=== PATIENT | female | born 1965 | race Caucasian/White ===

== ENCOUNTER 2020-09-02 14:44 | Outpatient (CLI) | payer OTHER, SELFPAY ==
--- NOTE | 2020-09-02 14:52 | XRR_ITS ---
PROCEDURE INFORMATION: Exam: XR Right Shoulder Exam date and time: 09/02/2020 3:03 PM Age: 55 years old Clinical indication: Pain and injury or trauma; Fall; Blunt trauma (contusions or hematomas); Shoulder; Right; Injury date: 6 weeks ago; Additional info: R rotator cuff syndrome/chronic R shoulder pain TECHNIQUE: Imaging protocol: XR Right shoulder. Views: 2 or more views. COMPARISON: No relevant prior studies available. FINDINGS: Bones/joints: No acute bony injury or malalignment. Mild degenerative change. Soft tissues: Unremarkable soft tissues. XR/XR shoulder RT min 2V* [id number] IMPRESSION: No acute bony injury or malalignment.
== END 2020-09-02 14:45 | disposition home or self-care (01) ==
LOC: RAD 14:50
PROVIDERS: Visit Provider Electrodiagnostic Medicine
DX: M75.101 Unspecified rotator cuff tear or rupture of right shoulder, not specified as traumatic (principal); M25.511 Pain in right shoulder
CPT/HCPCS: 73030

== ENCOUNTER 2021-06-18 12:26 | Outpatient (CLI) | payer OTHER, SELFPAY ==
--- NOTE | 2021-06-18 12:31 | MM_ITS ---
WS: [id number] BILATERAL DIGITAL SCREENING MAMMOGRAPHY WITH CAD CLINICAL INFORMATION: SCREENING HISTORY: Screening mammogram. No current complaints. COMPARISON: None. TECHNIQUE: Bilateral CC and MLO views. FINDINGS: Scattered fibroglandular densities bilaterally. Several focal asymmetric densities upper outer LEFT b reast posterior depth the largest measuring 8 mm. Recommend LEFT breast spot compression views and ul trasound for further evaluation. RIGHT breast is unremarkable. MM/[place] [id number] IMPRESSION: BI-RADS: 0-Incomplete: Need additional imaging evaluation FOLLOW UP: Need Additional Imaging
== END 2021-06-18 12:27 | disposition home or self-care (01) ==
PROVIDERS: Visit Provider Electrodiagnostic Medicine
DX: Z12.31 Encounter for screening mammogram for malignant neoplasm of breast (principal)
CPT/HCPCS: 77067

== ENCOUNTER 2021-07-21 09:00 | Outpatient (CLI) | payer OTHER, SELFPAY ==
--- NOTE | 2021-07-21 09:05 | MM_ITS ---
WS: [id number] LEFT 3D TOMOSYNTHESIS DIGITAL MAMMOGRAPHY WITH CAD CLINICAL INFORMATION: LT BREAST FOLLOW-UP COMPARISON: June 18, 2021 TECHNIQUE: 3 views of the left breast were obtained. FINDINGS: Scattered fibroglandular densities of the left breast. Again seen are several asymmetric densities upper outer LEFT breast posterior depth. These are unchan ged in spot compression views. Ultrasound is pending. ULTRASOUND BREAST LEFT TECHNIQUE: Ultrasound left breast focused area of concern. CLINICAL INFORMATION: LT BREAST MASS FINDINGS: Ultrasound LEFT breast 9:00-300 position. Normal underlying dense parenchymal tissue. Fibrocystic oscar nges. No suspicious cystic or solid lesions to target for biopsy. Findings are benign. MM/[place] [id number] IMPRESSION: BI-RADS: 2-Benign FOLLOW UP: 1 Year Follow-up Recommend return to annual screening mammography.
== END 2021-07-21 09:01 | disposition home or self-care (01) ==
PROVIDERS: Visit Provider Electrodiagnostic Medicine
DX: R92.8 Other abnormal and inconclusive findings on diagnostic imaging of breast (principal); N60.12 Diffuse cystic mastopathy of left breast
CPT/HCPCS: 76642; 77061

== ENCOUNTER 2024-05-16 13:12 | Outpatient (CLI) | payer BC, SELFPAY ==
--- NOTE | 2024-05-16 13:20 | MM_ITS ---
WS: [id number] Bilateral screening 3D tomosynthesis digital mammogram, 05/16/2024 1:25 PM Clinical Data: Screening Comparison: 07/21/2021, 06/18/2021 Findings: No spiculated masses or clustered calcifications are seen. There are no secondary signs of carcinoma . MM/MM scr BI tomosynthesis [id number] Impression: Negative bilateral mammogram unchanged. Recommend annual screening mammograms. BIRADS: 1 - Negative FOLLOW UP: 1 Year Follow-up DENSITY: The breasts are heterogeneously dense, which may obscure small masses. The CAD traffic checker was used
--- NOTE | 2024-05-16 13:23 | XR_ITS ---
WS: [id number] DEXA (DUAL ENERGY X-RAY ABSORPTIOMETRY) Bone mineral density was performed using a [employer] machine. HISTORY: Post menopausal COMPARISON: None available. Lumbar spine BMD (L1-L4): 1.225 g/cm2 T score: 0.4 Z score: 1.1 Total hip BMD: Left: 1.169 g/cm2. T score: 1.3 Z score: 1.8 Right: 1.101 g/cm2. T score: 0.7 Z score: 1.3 10 year probability of a major osteoporotic fracture is 5.8%. XR/XR DEXA axial skeleton* [id number] IMPRESSION: NORMAL BONE MINERAL DENSITY based upon the WHO classification for females.
== END 2024-05-16 13:13 | disposition home or self-care (01) ==
LOC: RAD 13:14
PROVIDERS: PCP Electrodiagnostic Medicine; Visit Provider Electrodiagnostic Medicine
DX: Z12.31 Encounter for screening mammogram for malignant neoplasm of breast (principal); Z78.0 Asymptomatic menopausal state; R92.333 Mammographic heterogeneous density, bilateral breasts
CPT/HCPCS: 77063; 77067; 77080